=== PATIENT | female | born 1985 | race Caucasian/White ===

== ENCOUNTER 2017-06-28 20:37 | Outpatient (CLI) | END 2017-06-29 00:05 | disposition home or self-care (01) ==

== ENCOUNTER 2018-07-19 20:53 | Inpatient (IN) | payer MEDICAID ==
[~2018-07-19] VITALS: Ht 144.8 cm; Wt 91.8 kg
[~2018-07-19 20:53] MED LIST: PREN-93 PO
[2018-07-20 00:03] VITALS: Ht 144.8 cm; Wt 91.8 kg
[2018-07-20] MEDS: LACTATED RINGER'S 1,000 ML IV PRN ×2 (02:00→03:21)
[2018-07-20] MEDS ORDERED: DEXTROSE 5%-LR 1,000 ML IV SCH (04:00)
[2018-07-20] MEDS ORDERED: DEXAMETHASONE 4 MG/ML 5 ML INJ IM SCH ×2 (04:00→12:00)
--- NOTE | 2018-07-20 04:48 | HP ---
Date/Time of Note Date/Time of Note DATE: 07/20/18 TIME: 04:38 OB - History Hx of Present Free Text/Dictation 33 years old with single intrauterine at 32 weeks and 2 days with a NAYLA of 09/11/2018 presented to triage with complaining of decreased movement last night. She denies nausea, vomiting, shortness of breath, chest pain, headache, visual changes, vaginal bleeding or LOF. Risk factors: -A1 gestational diabetes -History of labor at 35 weeks, currently on vaginal progesterone 200 mg every night Chief Complaint: Decreased movement Estimated Due Date: Sep 11, 2018 : 4 Para: 3 Spontaneous : 0 Therapeutic : 0 Care: Good Care Ultrasounds: Normal mid trimester US Obstetrical Complications: None, Gestational Diabetes Medical Complications: None Past Family/Social History * Past Medical, Surgical, Family and Obstetric Histories reviewed from chart. OB Admission Exam Vital Signs Vital Signs Blood pressure 110/68, pulse rate 78/minutes, respiratory rate 16/minutes, temperature 98.6 Physical Exam HEENT: WNL Heart: Rhythm Normal Lungs: Clear Abdomen: WNL Extremities: Normal Membranes: Intact Heart Rate: 140's Accelerations: Accelerations Present Decelerations: Variable Decelerations Varibility: Moderate Contractions on Admission: None Last 72 hours Lab Results CBC & BMP 07/20/18 00:51 Liver Function Test 07/20/18 00:51 Alanine Aminotransferase (ALT/SGPT) 41 Albumin 3.3 Alkaline Phosphatase 197 H Aspartate Amino Transf (AST/SGOT) 21 Direct Bilirubin 0.00 Total Protein 6.8 OB Assessment/Plan Other plan: 33-year-old 4 para [birth year]/2002 with A1 gestational diabetes and history of delivery at 35 weeks admitted for close monitoring due to complaining of decreased movement and multiple variable deceleration. - FHR: Category II - Continuous EFM, toco - CBC, blood type and screen - Ultrasound performed, AARON 9 cm, biophysical profile 8 out of 8 - Please see the orders - Obtain record 2) A1 gestational diabetes: Effect of gestational diabetes on and vice versa discussed in detail with patient. Check FBS and 2-hour postprandial blood glucose 3) history of delivery at 35 weeks. She is currently on vaginal progesterone 200 mg every night, continue progesterone Addendum: heart rate: There are episodes of no variability and variable decelerations. Bolus of IV fluid given. Still no change in heart rate pattern. Betamethasone for maturity of long given, anticipate increasing blood glucose. Insulin sliding scale if the blood glucose rising. ABHINAV MANE Jul 20, 2018 04:48
[2018-07-20] MEDS ORDERED: ACCU-CHEK XX SCH (06:00)
[2018-07-20] MEDS ORDERED: PRENATAL VITAMIN PO SCH (09:00)
[2018-07-20] MEDS ORDERED: LACTATED RINGER'S 1,000 ML IV ONE (09:53)
--- NOTE | 2018-07-20 09:53 | PREAC ---
Date/Time of Note Date/Time of Note DATE: 07/20/18 TIME: 09:52 Anesthesia Eval and Record Evaluation Time Pre-Procedure Interview DATE: 07/20/18 TIME: 09:52 Age 33 Sex female NPO: 8 hrs Preoperative diagnosis intrauterine , labor, category 3 tracing Planned procedure primary c section Past Medical History Past Medical History: Includes : Gestational age: (32.3), Gestational diabetes Surgery & Anesthesia Issues No known issue Meds Anticoagulation: No Beta Tania within 24 hr: No Reason Beta Tania not given: Pt. not on B-Tania Reported Medications Vit No.124/Iron/FA ( Vitamin Tablet) 1 Each Tablet, 1 EACH PO, TAB 06/28/17 Current Medications Lactated Ringer's 1,000 ml @ 125 mls/hr Q8H PRN IV NON REASSURING TRACING Last administered on 07/20/18at 03:21; Admin Dose 125 MLS/HR; Start 07/20/18 at 00:30 Prenat Multivit/ [place]/Iron/Folic Ac () 1 tab DAILY PO ; Start 07/20/18 at 09:00 Diagnostic Test (Pha) (Accu-Chek) 1 ea FBSPP XX ; Start 07/20/18 at 06:00 Dextrose/Lactated Ringer's 1,000 ml @ 125 mls/hr Q8H IV Last administered on 07/20/18at 04:03; Admin Dose 125 MLS/HR; Start 07/20/18 at 04:00 Progesterone (Prometrium) 200 mg HS VAG ; Start 07/20/18 at 21:00 Dexamethasone (Decadron) 6 mg Q6 IM ; Start 07/20/18 at 12:00; Stop 07/21/18 at 00:01 Meds reviewed: Yes Allergies Coded Allergies: No Known Drug Allergy (Verified Allergy, Mild, 05/01/09) Allergies Reviewed: Yes Labs/Studies Labs Reviewed: Reviewed by anesthesiologist Result Diagram: 07/20/18 00507/20/1850 Laboratory Tests 07/20/18 00:51 Blood Bank Test 07/20/18 00:51 Blood Type A POSITIVE Rh Immune Globulin Candidate NO test: N/A Pre-procedure Exam Airway: Adequate mouth opening, Adequate thyromental dist Mallampati: Mallampati II Teeth: Normal Lung: Normal Heart: Normal ASA Physical Status ASA physical status: 2 Emergency: E Planned Anesthetic Neuraxial: Spinal Planned Pain Management Parenteral pain med Pre-operative Attestations Prior to commencing anesthesia and surgery, the patient was re-evaluated, there was verification of: *The patient's identity *The results of appropriate recent lab work and preoperative vital signs *The above evaluation not changing prior to induction *Anesthetic plan, risk benefits, alternative and complications discussed with patient/family; questions answered; patient/family understands, accepts and wishes to proceed. MARVA DE LA ROSA MD Jul 20, 2018 09:53
[2018-07-20] MEDS ORDERED: LACTATED RINGER'S 1,000 ML IV SCH (09:58)
[2018-07-20] MEDS ORDERED: METOCLOPRAMIDE 10 MG INJ IV ONE (10:00)
[2018-07-20] MEDS ORDERED: FAMOTIDINE 20 MG INJ IV ONE (10:00)
[2018-07-20] MEDS ORDERED: CITRIC ACID/NA CITRATE 30 ML CUP PO ONE (10:00)
[2018-07-20] MEDS ORDERED: METHYLERGONOVINE 0.2 MG INJ IM PRN ×3 (10:00→19:30)
[2018-07-20] MEDS ORDERED: MISOPROSTOL 200 MCG TAB PR PRN ×3 (10:00→19:30)
[2018-07-20] MEDS ORDERED: OXYTOCIN 30 UNITS/LR 500 ML IV SCH ×3 (10:00→19:19)
[2018-07-20] MEDS ORDERED: CARBOPROST 250 MCG INJ IM PRN ×3 (10:00→19:30)
[2018-07-20] MEDS ORDERED: CEFAZOLIN 2 GM/50 ML (PMX) 50 ML IVPB SCH (10:00)
[2018-07-20] MEDS ORDERED: OXYTOCIN 30 UNITS/LR 500 ML IV PRN ×3 (10:00→19:30)
[2018-07-20] MEDS ORDERED: CEFAZOLIN 2 GM/50 ML (PMX) 50 ML IVPB ONE (10:01)
--- NOTE | 2018-07-20 10:24 | PN ---
Date/Time of Note Date/Time of Note DATE: 07/20/18 TIME: 10:18 OB Subjective Subjective Subjective Patient has been signed out to me in am Patient is currently admitted due to Cat 2 tracing, Perinatology consulted for recommendation already. Called by Dr. Mcwilliams, recommended delivery due to Cat 3 tracing. Tracing reviewed. Episodes of decreased variability, that improves. Episodes of prolonged varaible deceleration noted. Cat 3 tracing Called for Emergency section I have discussed with the patient about risk and benefit of section including risk of infection, bleeding, damage to surrounding structures including bowel and bladder and risk of blood transfusion including but not limited to blood borne infection including HIV, hepatitis B and C and transfusion reaction. Risk of possibility admission of long-term baby to the NICU and complications including morbidity long and short-term discussed with the patient. Risk and benefit discussed in Mongolian with plant etiologist patient verbalized understanding of the above risks. She accepts blood transfusion in case of emergency OR,NICU and nursing staff and anesthesia was notified Proceed with Emergency section. TULIO ABBOTT MD Jul 20, 2018 10:24
[2018-07-20] MEDS ORDERED: morphine SULFATE/PF (10 MG/10 ML) INJ ONE (10:37)
[2018-07-20] MEDS ORDERED: OXYTOCIN 30 UNITS/LR 500 ML IV ONE ×2 (10:47→11:30)
[2018-07-20] MEDS ORDERED: MIDAZOLAM 1 MG/ML 2 ML INJ ONE (11:29)
[2018-07-20] MEDS ORDERED: DIPHENHYDRAMINE 50 MG INJ IV PRN ×3 (11:30→21:30)
[2018-07-20] MEDS ORDERED: PROCHLORPERAZINE 10 MG INJ IV PRN (11:30)
[2018-07-20] MEDS ORDERED: KETOROLAC 30 MG INJ IV PRN ×3 (11:30→21:30)
[2018-07-20] MEDS ORDERED: HYDROmorphONE 1 MG/5 ML IV SYRINGE IV PRN ×3 (11:30)
[2018-07-20] MEDS ORDERED: FENTAnyl 50 MCG/ML VIAL IV PRN ×3 (11:30)
[2018-07-20] MEDS ORDERED: ONDANSETRON 4 MG INJ ONE (11:30)
[2018-07-20] MEDS ORDERED: MEPERIDINE 25 MG INJ IV PRN (11:30)
[2018-07-20] MEDS ORDERED: ONDANSETRON 4 MG INJ IV PRN ×2 (11:30→15:30)
[2018-07-20] MEDS ORDERED: EPHEDrine SULFATE 50 MG/5 ML SYG IV PRN (11:30)
--- NOTE | 2018-07-20 12:16 | PAC ---
Date/Time of Note Date/Time of Note DATE: 07/20/18 TIME: 12:15 Post-Anesthesia Notes Post-Anesthesia Note Activity: WNL Respiratory function: WNL Cardiovascular function: WNL Mental status: Baseline Pain reasonably controlled: Yes Hydration appropriate: Yes Nausea/Vomiting absent: Yes Comments BP: 110/54 HR: 88 RR: 15 T: 98.3 SaO2: 98% MARVA DE LA ROSA MD Jul 20, 2018 12:16
[2018-07-20] MEDS ORDERED: HYDROCODONE/APAP (5/325) TAB PO PRN ×2 (14:00→19:30)
[2018-07-20] MEDS ORDERED: LANOLIN HPA 1 PKT TOP PRN ×2 (14:00→19:30)
[2018-07-20] MEDS: IBUPROFEN 600 MG TAB PO SCH ×2 (14:00→17:24)
[2018-07-20] MEDS ORDERED: NACL 0.9% 3 ML SYG IV SCH ×2 (14:00→19:30)
[2018-07-20 15:00] VITALS: BP 136/73; PULSE 61; RESP 18
[2018-07-20 15:30] VITALS: BP 137/78; PULSE 60; RESP 18
[2018-07-20] MEDS ORDERED: ZOLPIDEM 5 MG TAB PO PRN (15:30)
[2018-07-20] MEDS ORDERED: NALOXONE (0.4 MG/ML) INJ IV PRN (15:30)
[2018-07-20] MEDS ORDERED: HYDROmorphONE 0.5 MG/0.5 ML SYG IV PRN ×2 (15:30)
--- NOTE | 2018-07-20 15:50 | CONS ---
DATE OF ADMISSION: 07/19/2018 DATE OF CONSULTATION: 07/20/2018 I was called to review a heart tone strip on patient Keerthi Hutton who is 32 weeks and 3 da ys and presented with decreased movement. There is a severe IUGR. Unfortunately, the [facility] is not transmitting any images as of 4:16. but I did review that up to 4:16 minimal variabil ity with repetitive decelerations. I asked them to send me a picture of the cordant 5 minutes if con tinues to have some minimal variability with some again deceleration. This is a category 3 strip and should have been delivered before but please do deliver as soon as humanly possible and consult. Daryl ke sure NICU is available. Dictated By: NITZA PUGA MD ST/NTS Conf#: [id number] DID#: [id number] CC: BEAU EDWARDS MD;*EndCC*
[2018-07-20 16:30] VITALS: BP 123/70; PULSE 55; RESP 18
--- NOTE | 2018-07-20 19:19 | OPR ---
Operative Report Planned Procedure Free Text/Dictation July 20, 2018 Procedure date Jul 20, 2018 Procedure(s) Emergency primary low transverse section Via Pfannenstiel skin incision Performed by see signature line Outside Sales Professional: HYUN ALEJO MD 2nd Outside Sales Professional N/A Anesthesiologist: MARVA DE LA ROSA MD Pre-procedure diagnosis 1. IUP at 32 weeks 2.Decreased movement 3. GDM 4. Severe IUGR, less than 3rd percentile. Absence of end-diastolic blood flow 5. Category 3 tracing. Nonreassuring status, recommended by perinatologist delivery 6. Retained IUD, noted to be at the area of the cervix in ultrasound with perinatologist x2. No evidence of IUD noted at the time of delivery and during surgery. X-ray performed of the abdomen and pelvis and did not reveal any evidence of retained IUD placenta evaluated. No evidence of attached IUD vaginal exam and evaluation of all the operative site did not reveal any IUD. [id number] Anesthesia Type: [id number] spinal Post-Procedure Post-procedure diagnosis Same Findings Live Baby [Gril], Apgars 8] and [9], weight [3 lbs and 2 0z], position [Nohemy Breech , [] presentation [. Severely IUGR No IUD found. Xray of the abdomen and pelvis comfirmed absence of retained IUD. Estimated Blood Loss: 500 - 600 mls Specimen(s) Cord blood gas and cord blood Grafts/Implant(s) none Complication(s) none Pt Condition post procedure: stable Disposition: PACU Procedure Description 33-year-old with IUP at 32 weeks and [address] and care with Dr. Pacheco , presented with complaint of decreased movement. She had nonreassuring heart tracing. Size appears to be less than dates. Estimated weight by ultrasound less than 3 percentile consistent with severe IUGR. Doppler showed absence of end-diastolic flow. Due to nonreassuring heart tracing consistent with category 3 tracing patient was candidate for emergency section. It was recommended by perinatologist as well. Status post 1 dose of dexamethasone 5 hours prior to procedure. Or, anesthesia NICU team was notified. After discussion with the patient about the risk and benefit of procedure including risk of infection, bleeding, damage to surrounding structures including bowel and bladder and risk ofBlood transfusion including but not limited to blood borne infection including HIV, hepatitis B and C and transfusion reaction informed consent was obtained. Patient verbalized understanding of the above risk. She was then transferred to the OR and received adequate spinal anesthesia. She was then prepped and draped in the dorsal supine position with a leftward tilt. Timeout completed correctly. Patient received 2 g of Ancef prior to skin incision. Then a Pfannenstiel skin incision was made using scalpel was carried down to the underlying layer of fascia using Bovie and scalpel. Then the fascial incision was transversely opened. Superior aspect of fascial incision was grasped using a Libertad, was elevated and was dissected off of the rectus muscle using sharp dissection as well as Bovie. Then the inferior aspect of the fascial incision grasped using a Libertad, was elevated off and dissecting off of the parameters muscle in a similar fashion. Then the parietoperitoneum was identified and was entered bluntly. Intra-abd ominal cavity entered without any complication. Lower uterine segment was identified. Bladder flap was created. Then the lower uterine incision was made transversely. Amniotic sac was identified. It was ruptured. Clear fluid noted. Baby was in nohemy breech presentation. Breech part of the baby was grasped and was brought up to the incision while fire assistant was applying fundal pressure with gentle traction along the maternal body axis, after visualization of the axillary area anterior and then posterior it was gentle leave the arm by hooking around the humerus with careful attention released and then the posterior shoulder and arm released in a similar fashion and then the head was delivered using Mauriceau maneuver. 32nd delayed cord clamp was done. Delayed cord clamp was done. Baby was handed to the waiting screen stretcher and NICU team. Of note that upon delivery of the head immediately nose and mouth was suctioned using a suction. Cord blood and cord gases obtained. Then the placenta delivered by uterine massage completely and was sent to pathology. Placenta evaluated and there was no evidence of retained IUD noted. The uterus was cleared of all clots and debris's. There was no evidence of retained IUD. uterus was noted to be intact. Then the uterine incision after removing of all clots and debris's repaired in 2 layers using 1-0 Monocryl. First layer used for hemostasis and the second layer used for imbrication. Excellent hemostasis of the uterine incision was obtained. Surgicel was applied over the incision. There was no evidence of retained IUD in the pelvis bimanual exploration noted. At this point vaginal exam was performed and no evidence of retained IUD in the cervical area was also noted. After changing of the gloves and re-scrubbing the gutters were cleared of all clots and debris's. Then decision was made to proceed with x-ray of the abdomen and pelvis. X-ray of the abdomen and pelvis did not reveal any evidence of retained IUD. At this point after reassurance about the hemostasis the parietoperitoneum was repaired in the midline using 2-0 Vicryl and then the rectus muscle was reapproximated using 2-0 Vicryl as well. Hemostasis of soft fascia area and rectus muscle was obtained using Bovie. Then the fascia was reapproximated using 1 0-0 Vicryl in a continuous fashion. Irrigation of subcutaneous tissue performed using warm normal saline. Suppleness tissue was reapproximated using 2-0 plain gut and at the end the skin was reapproximated using Ensorb. Fundus was firm at the end of the delivery. Patient tolerated the procedure well. Sponge lap and needle counts were correct x2. Patient was then transferred to recovery room in stable condition TULIO ABBOTT MD Jul 20, 2018 19:19
[2018-07-20] MEDS ORDERED: IBUPROFEN 600 MG TAB PO SCH (19:30)
[2018-07-20 20:00] VITALS: BP 100/57; PULSE 16; RESP 20
[2018-07-20] MEDS ORDERED: PROGESTERONE 100 MG CAP VAG SCH (21:00)
[2018-07-20] MEDS ORDERED: HYDROmorphONE 1 MG/ML SYG IV PRN (21:30)
[2018-07-21] VITALS: BP 89/51; PULSE 71; RESP 18
[2018-07-21 04:00] VITALS: BP 97/52; PULSE 73; RESP 18
[2018-07-21 08:11] VITALS: BP 107/56; PULSE 79; RESP 18
[2018-07-21] MEDS: IBUPROFEN 600 MG TAB PO SCH ×2 (11:43→17:40)
--- NOTE | 2018-07-21 13:59 | QN ---
Documentation Comment s/p c/s Subjective: no complaint Objective: Afebrile, VSS NAD A&O Abdomen: soft, appropriate tender Incision: no sign of bleeding/infection mild lochia Extremity: 1+ edema bilaterally Assessment: S/p C/S Recovering Well Plan: current care BEAU EDWARDS MD Jul 21, 2018 13:59
[2018-07-21 16:05] VITALS: BP 115/59; PULSE 87; RESP 18
[2018-07-21 16:30] VITALS: BP 115/59; PULSE 87; RESP 18
[2018-07-21 20:00] VITALS: BP 118/60; PULSE 64; RESP 18
[2018-07-22] MEDS: IBUPROFEN 600 MG TAB PO SCH ×5 (00:33→23:41)
[2018-07-22 04:00] VITALS: BP 116/66; PULSE 70; RESP 20
[2018-07-22 08:00] VITALS: BP 109/67; PULSE 71; RESP 18
--- NOTE | 2018-07-22 14:46 | DS ---
Date/Time of Note Date/Time of Note DATE: 07/22/18 TIME: 14:45 Obstetrical Discharge Record Final Diagnosis Final Diagnosis: delivered Section Section: Primary Complications Other (iugr) Augmentation: No Induction: No Rupture of Membranes: No Condition on Discharge Physical Assessment Voiding: Yes Bowel Movement: Yes Breast: Soft, non-tender, Filling Fundus: Firm Abdomen and Incision: soft, appropriate tenderness and no sign of infection on her incision. Calf Tenderness: No Patient Condition: Good BEAU EDWARDS MD Jul 22, 2018 14:46
[2018-07-22 16:30] VITALS: BP 120/75; PULSE 83; RESP 20
[2018-07-22 19:50] VITALS: BP 105/56; PULSE 84; RESP 19
[2018-07-23 03:30] VITALS: BP 114/61; PULSE 71; RESP 19
[2018-07-23] MEDS: IBUPROFEN 600 MG TAB PO SCH ×2 (06:00→12:16)
[2018-07-23 08:13] VITALS: BP 110/80; PULSE 90; RESP 18
[2018-07-23] MEDS ORDERED: DIPHTH/TET/ACEL PERTUSS (ADULT) 0.5 ML VIAL IM* ONE (09:00)
[2018-07-23] MEDS ORDERED: MEASLES,MUMPS,RUBELLA VACCINE INJ SC* ONE (09:00)
== END 2018-07-23 14:26 | disposition home or self-care (01) | DRG 788 ==
LOC: OBT 20:53 → L-D 20:57 → OBT 23:50 → L-D 23:50 → PP1 07-20 14:56
PROVIDERS: ADMIT Specialist; ATTEND Specialist
PROC: 10D00Z1 Extraction of Products of Conception, Low, Open Approach (ICD-10-PCS; principal; 2018-07-20 11:00)
DX: O76 Abnormality in fetal heart rate and rhythm complicating labor and delivery (principal); O36.8130 Decreased fetal movements, third trimester, not applicable or unspecified; O24.420 Gestational diabetes mellitus in childbirth, diet controlled; O36.5930 Maternal care for other known or suspected poor fetal growth, third trimester, not applicable or unspecified; O32.1XX0 Maternal care for breech presentation, not applicable or unspecified; Z3A.35 35 weeks gestation of pregnancy; Z37.0 Single live birth
CPT/HCPCS: 36415; 36600; 74018; 76815; 76818; 76820; 80053; 82731; 82803; 82962; 85025; 85610; 85730; 86592; 86703; 86762; 86885; 86900; 86901; 87340; 88307; 99464; G0463; J0690; J1100; J1885; J2250; J2274; J2405; J2590; J2765; J7120; J7121